=== PATIENT | male | born 1980 | race Caucasian/White ===

== ENCOUNTER 2020-05-10 07:23 | Emergency (ER) | payer BC, SELFPAY ==
--- NOTE | ~2020-05-10 | CT_ITS ---
EXAMINATION: CT abdomen pelvis wo con DATE: 05/10/2020 08:08 INDICATION: Neck pain TECHNIQUE: Computed tomography (CT) of the abdomen and pelvis was performed without intravenous contr ast. The dose-length product was 1622.28 mGy-cm. Automated exposure control and iterative reconstruct ion technique were employed. COMPARISON: None. FINDINGS: Lung bases are unremarkable. Heart size normal. Mildly enlarged portacaval lymph node measu ring 1.9 cm. Additional smaller portacaval lymph nodes are present, likely reactive. Fatty infiltration of the liver. Spleen, pancreas, adrenal glands and left kidney are unremarkable. T here is a 2-3 mm right UVJ stone with mild hydronephrosis and perinephric edema. There are additional nonobstructing right renal stones. Gallbladder is present. Nonobstructive bowel gas pattern. Normal appendix. IMPRESSION: 1. Right UVJ stone measuring 2-3 mm with mild hydronephrosis and perinephric edema. 2: Right nephrolithiasis. 3: Portacaval lymphadenopathy, likely reactive. 4: Hepatic steatosis. Reviewed, dictated and finalized at location A. IMPRESSION: 1. Right UVJ stone measuring 2-3 mm with mild hydronephrosis and perinephric ed baldomero. 2: Right nephrolithiasis. 3: Portacaval lymphadenopathy, likely reactive. 4: Hepatic steatosis.
[2020-05-10 07:26] VITALS: BP 180/101; PULSE 56; RESP 20; TEMP 36.6; O2SAT 99
[2020-05-10 07:39] LABS: Basophils Percent Auto 0.6 % (0.2-1.2); Eosinophils Absolute Auto 0.1 K/mm3 (0-0.3); Eosinophils Percent Auto 1.7 % (0-4.4); Hematocrit 46.2 % (42.0-52.0); Hemoglobin 15.8 g/dL (14.0-18.0); Immature Granulocyte Absolute 0.03 K/mm3 (0.00-0.031); Immature Granulocyte Percent A 0.5 % (0-0.5); Lymphocytes Absolute Auto 2.66 K/mm3 (0.9-3.2); Lymphocytes Percent Auto 42.1 % (18.3-44.2); Mean Corpuscular HGB Conc 34.2 g/dl (32-36); Mean Corpuscular Hemoglobin 29.6 pg (26-34); Mean Corpuscular Volume 86.5 fl (80-100); Monocytes Absolute Auto 0.5 K/mm3 (0.1-0.6); Monocytes Percent Auto 8.5 % (2.6-8.5); Neutrophils Absolute Auto 2.9 K/mm3 (1.3-6.7); Neutrophils Percent Auto 46.6 % (45.5-73.1); Platelet Count Result 240 k/mm3 (150-375); Red Blood Count 5.34 M/mm3 (4.6-6.20); Red Cell Distribution Width 12.4 % (11.5-14.5); White Blood Count 6.3 K/mm3 (4.5-10.0)
--- NOTE | 2020-05-10 07:41 | ED.ABDPAIN ---
HPI - Abdominal Pain General Chief Complaint: Abdominal Pain Stated Complaint: rt flank pain, abd pain Source: patient Mode of arrival: ambulatory Limitations: no limitations History of Present Illness HPI narrative: Patient complaining of right flank pain, 6 out of 10, nonradiating, sharp started this morning. Denies any nausea vomiting diarrhea. Denies any urinary symptoms. Denies any fever or chills. Related Data Home Medications Medication Instructions Recorded Confirmed No Home Medications 05/10/20 05/10/20 Allergies Allergy/AdvReac Type Severity Reaction Status Date / Time No Known Allergies Allergy Unverified 05/10/20 07:27 Review of Systems Review of Systems: All systems reviewed & are unremarkable except as noted in HPI and below Constitutional: Constitutional: Denies body ache(s), Denies chills, Denies excessive sweating, Denies fatigue, Denies fever(s), Denies headache(s), Denies lethargy, Denies malaise, Denies weakness and Denies weight loss Eyes: Eyes: Denies blurry vision, Denies change in vision and Denies loss of vision ENT: Denies dizziness, Denies ear discharge, Denies headache(s), Denies lip swelling, Denies epistaxis, Denies nasal congestion, Denies neck pain, Denies throat swelling and Denies tongue swelling Cardiovascular: Cardiovascular: Denies chest pain, Denies chest pain at rest, Denies chest pain with activity, Denies diaphoresis, Denies rapid heart rate, Denies edema, Denies irregular heart rhythm, Denies lightheadedness, Denies palpitations, Denies dyspnea and Denies dyspnea on exertion Respiratory: Respiratory: Denies chest congestion, Denies cough, Denies hemoptysis, Denies dyspnea and Denies dyspnea on exertion Gastrointestinal: Gastrointestinal: Denies abdominal pain, Denies melena, Denies hematochezia, Denies diarrhea, Denies nausea, Denies vomiting and Denies hematemesis Musculoskeletal: Musculoskeletal: Denies abnormal gait, Denies deformity, Denies joint swelling, Denies limited range of motion, Denies neck pain and Denies numbness Neurologic: Denies Abnormal speech present, Denies abnormal gait, Denies confusion, Denies dizziness, Denies headache(s), Denies focal weakness, Denies loss of vision, Denies numbness, Denies Other visual disturbances, Denies Sensory deficit (Neuro) and Denies weakness Psychiatric: Psychiatric: Denies confusion, Denies depression, Denies auditory hallucinations, Denies homicidal ideation and Denies suicidal ideation Endocrine: Endocrine: Denies cold intolerance, Denies excessive sweating, Denies fatigue, Denies heat intolerance and Denies palpitations Hematologic/Lymphatic: Hematologic/Lymphatic: Denies easy bleeding and Denies easy bruising Allergic/Immunologic: Allergic/Immunologic: Denies lip swelling, Denies throat swelling and Denies tongue swelling [facility] Social History Social History Gender identity (if verbalized by the patient): Male Exam Const: General: cooperative, healthy appearing, comfortable, no acute distress, well developed, alert and awake; No confusion Orientation/consciousness: oriented to person, oriented to place, oriented to time, patient oriented x3 and No confusion Limitations: no limitations HENMT: Head: normal to inspection, normocephalic and atraumatic Ears: hearing grossly normal bilaterally, TM normal on the right and TM normal on the left General nose exam: Normal external nose present, Normal nares present and No nasal discharge present Face and sinus: normal facial exam Mouth: Yes Normal oral and palatal mucosa present, Yes lip normal, Yes tongue normal and Yes oropharynx normal Throat: posterior oropharynx normal, tonsils normal and uvula midline Eyes: General: appearance normal, both eyes and all related structures Pupils: Equal, round and reactive pupils present EOM: EOMs intact bilaterally Neck: Neck: normal visual inspection, full ROM, no lymphadenopathy and no meningeal signs Chest: Chest palpation
--- NOTE | 2020-05-10 07:45 | PC.NURSE ---
Patient refusing straight cath at this time, urinal provided.
[2020-05-10] MEDS: SODIUM CHLORIDE 0.9% IV 1,000 ML 999 ML IV CONT (07:50)
[2020-05-10] MEDS: KETOROLAC 30 MG/ML VIAL (*BKC) IV PUSH (07:50)
[2020-05-10 07:57] LABS: Anion Gap 10 mmol/L (8-16); Blood Urea Nitrogen 21 mg/dL (9-20); Calcium 9.7 mg/dL (8.4-10.2); Carbon Dioxide 26 mmol/L (22-30); Chloride 103 mmol/L (98-107); Estimated CRCL calculation 114 ml/min; Estimated Glomerular Filt Rate > 60; Glucose 138 mg/dL (75-110); Potassium 4.1 mmol/L (3.4-5.0); Sodium 139 mmol/L (137-145)
--- NOTE | 2020-05-10 08:05 | PC.NURSE ---
called lab at 08 to add on Hepatic
[2020-05-10 08:16] LABS: Alanine Aminotransferase 33 U/L (4-50); Albumin Level 4.8 g/dL (3.5-5.1); Alkaline Phosphatase 41 U/L (38-126); Aspartate Amino Transferase 26 U/L (17-59); Bilirubin,Total 0.7 mg/dL (0.2-1.3); Lipase 89 U/L (23-300)
[2020-05-10 08:20] VITALS: TEMP 36.6
[2020-05-10] MEDS: PROMETHAZINE HCL 25 MG/ML AMPUL 12.5 MG IV PUSH (08:20)
[2020-05-10 08:35] VITALS: BP 177/92; PULSE 69; RESP 18; O2SAT 97
[2020-05-10] MEDS: HYDROmorphone HCL INJ (*CRX) 1 MG/ML SYR IV PUSH (08:35)
[2020-05-10 09:05] VITALS: TEMP 36.6
[2020-05-10 09:52] LABS: Add Urine Microscopic? NO; Appearance Urine Clear (Clear); Bilirubin Urine Negative (Negative); Blood Urine Negative (Negative); Color Urine Yellow (Yellow); Glucose Urine UA Negative (Negative); Ketones Urine Negative (Negative); Leukocyte Esterase Ur Negative LEU/UL (Negative); Nitrate Urine Negative (Negative); Protein Urine Negative (Negative); Urobilinogen Urine Negative mg/dL (<2.0)
[2020-05-10] MEDS: HYDROcodone/acetaminophen (*CRX) 5-325 MG TABLET 1 TAB PO (10:43)
[2020-05-10] MEDS: TAMSULOSIN HCL 0.4 MG CAPSULE PO (10:43)
[2020-05-10 11:13] VITALS: TEMP 36.6
[2020-05-10 11:47] VITALS: BP 163/99; PULSE 62; RESP 18; O2SAT 98
== END 2020-05-10 11:49 | disposition home or self-care (01) ==
PROVIDERS: Emergency Provider Emergency Medicine
DX: N13.2 Hydronephrosis with renal and ureteral calculous obstruction (principal); K76.0 Fatty (change of) liver, not elsewhere classified
CPT/HCPCS: 36415; 74176; 80048; 80076; 81003; 83690; 85025; 96361; 96374; 96375; 99284; A9270; J1170; J1885; J2550; J7030

== ENCOUNTER 2020-08-14 13:08 | Emergency (ER) | payer BC, SELFPAY ==
--- NOTE | ~2020-08-14 | XR_ITS ---
EXAMINATION: XR knee RT 3V DATE: 08/14/2020 14:04 INDICATION: Right knee pain and swelling TECHNIQUE: Anteroposterior, oblique and crosstable lateral views of the right knee were obtained COMPARISON: None. FINDINGS: Alignment is normal. No fracture. Joint spaces appear normal on nonweightbearing imaging. Moderate-s ized right knee joint effusion without layering lipohemarthrosis. Soft tissues are otherwise unremark able. IMPRESSION: 1. Moderate-sized right knee joint effusion. No osseous abnormality. Reviewed, dictated and finalized at location A. 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
[2020-08-14 13:27] VITALS: BP 142/90; PULSE 98; RESP 20; TEMP 36.6; O2SAT 99
[2020-08-14] MEDS: KETOROLAC (*BKC) 60 MG/2 ML VIAL IM (13:56)
--- NOTE | 2020-08-14 15:27 | ED.LOWEXIN ---
HPI - Extremity Injury (Lower) General Chief Complaint: Extremity Injury, Lower Stated Complaint: right knee pain Time Seen by Provider: 08/14/20 13:34 History of Present Illness HPI Narrative: Patient is a 40-year-old male who presents to the ER with right knee pain. Worsening over the last 2 weeks. Worsened to the point today where he is using crutches. No known trauma. Reports increased swelling but no redness. Had similar issues with his left knee and had it drained. Is known to have a meniscal tear on the left side but not the right. Has not been taking any anti-inflammatories. Reports he had some bright red blood in the stool earlier so he stopped the NSAIDs. No upset stomach or dark black stools. Reports the amount of blood is scant and within the center of the stool and not feeling the toilet or surrounding it. Related Data Allergies Allergy/AdvReac Type Severity Reaction Status Date / Time No Known Allergies Allergy Verified 08/14/20 13:30 Review of Systems Constitutional: Constitutional: Denies chills, Denies fever(s) and Denies weakness Gastrointestinal: Gastrointestinal: Denies abdominal pain, Denies constipation, Denies nausea and Denies vomiting Musculoskeletal: Musculoskeletal: Reports arthralgias, Reports joint swelling and Denies muscle cramps PMFSH Past Medical History Medical History (Updated 08/14/20 @ 15:36 by Warren Robbins MD) Healthy adult male Surgical History Surgical History (Updated 08/14/20 @ 15:29 by Warren Robbins MD) No history of previous surgery Social History Social History (Updated 08/14/20 @ 15:29 by Warren Robbins MD) Smoking status: Former smoker Gender identity (if verbalized by the patient): Male Exam Narrative: Exam Narrative: GENERAL: Well-appearing, well-nourished, and in no acute distress. HEAD: Normocephalic, atraumatic. EXTREMITIES: Swelling of the right knee with intact range of motion. No redness. Tender palpation over the lateral aspect of the joint line and over the quadriceps musculature just superior lateral to the patella. SKIN: Warm, dry, no rash. NEURO: Alert and oriented x3. PSYCH: Normal mood and affect. Course Course Emergency Course: Pain improving with Toradol. Informed of imaging results. Recommend rice therapy and anti-inflammatories. Will give small dose of [place] as well. Vital Signs Vital signs: Vital Signs Temperature 97.8 F 08/14/20 13:27 Pulse Rate 98 08/14/20 13:27 Respiratory Rate 20 08/14/20 13:27 Blood Pressure 142/90 H 08/14/20 13:27 Pulse Oximetry 99 08/14/20 13:27 Temperature 97.8 F 08/14/20 13:27 Pulse Rate 98 08/14/20 13:27 Respiratory Rate 20 08/14/20 13:27 Blood Pressure 142/90 H 08/14/20 13:27 Pulse Oximetry 99 08/14/20 13:27 MDM - Extremity Injury (Lower) Imaging Data Radiologist's impression: ITS Impressions Knee X-Ray 08/14/20 14:09 IMPRESSION: 1. Moderate-sized right knee joint effusion. No osseous abnormality. Discharge Plan Discharge Clinical Impression: Effusion of knee joint right, Knee pain Patient Disposition: Home, Self-Care Condition: Stable Instructions: Knee Pain (ED), R.I.C.E. Treatment (ED) Additional Instructions: Return the ER if you have chest pain with shortness of breath, you cannot keep down food or water, you lose consciousness, you have additional concerns. Prescriptions: New hydrocodone-acetaminophen 5-325 mg tablet 1 tablet PO Q6H PRN (Reason: pain) Qty: 10 RF: 0 naproxen 500 mg tablet 500 mg PO BID Qty: 20 RF: 0 esomeprazole magnesium [Nexium Packet] [address] for susp in packet 40 mg PO DAILY Qty: 30 RF: 0 No Action hydrocodone-acetaminophen [[place]] 5-325 mg tablet 1 tablet PO Q8H PRN (Reason: pain) Qty: 10 RF: 0 tamsulosin [Flomax] 0.4 mg capsule 0.4 mg PO DAILY Qty: 5 RF: 0 ketorolac 10 mg tablet 10 mg PO Q6H PRN (Reason: pain) 3 Days Qty: 10 RF
== END 2020-08-14 15:55 | disposition home or self-care (01) ==
PROVIDERS: Emergency Provider Emergency Medicine
DX: M25.561 Pain in right knee (principal); M25.461 Effusion, right knee; Z87.891 Personal history of nicotine dependence
CPT/HCPCS: 73562; 96372; 99283; J1885

== ENCOUNTER → 2021-02-21 00:21 | Outpatient (CLI) | payer BC, SELFPAY ==
[2021-02-21 21:20] LABS: SARS-CoV-2 RNA PCR Negative
== END ==
PROVIDERS: PCP Internal Medicine; Visit Provider Internal Medicine Gastroenterology
DX: Z01.812 Encounter for preprocedural laboratory examination (principal); Z20.822 Contact with and (suspected) exposure to COVID-19
CPT/HCPCS: C9803; U0003; U0005

== ENCOUNTER 2021-02-24 02:04 | Day surgery (SDC) | payer BC, SELFPAY ==
[2021-02-19 11:10] VITALS: BMI 43.1
[2021-02-24 08:41] VITALS: BP 144/90; PULSE 80; RESP 18; TEMP 35.7; O2SAT 99; BMI 41.3
--- NOTE | 2021-02-24 08:48 | WPDANESEPPF ---
Anes - Initial Pre Proc Eval Procedure: Operation Date: 02/24/21 10:00 Proposed Procedures p Colonoscopy - Evan Duval MD Date/Time: 02/24/21 08:48 Surgeon: Evan Duval MD Pre Op Diagnosis: Rectal Bleeding Patient Data Age: 41 Gender: M Height: 1.78 m Weight: 130.8 kg Last Vital Signs Temp 35.7 C L 02/24/21 08:41 Pulse 80 02/24/21 08:41 Resp 18 02/24/21 08:41 BP 144/90 H 02/24/21 08:41 Pulse Ox 99 02/24/21 08:41 Allergies Allergy/AdvReac Type Severity Reaction Status Date / Time No Known Allergies Allergy Verified 02/24/21 08:40 Home Medications Medication Instructions Recorded Confirmed Type No Home Medications 01/21/21 02/24/21 History Patient hx anesthesia problems: none Family hx anesthesia problems: none PMFSH Past Medical History Medical History Healthy adult male Ulcer Surgical History Surgical History No history of previous surgery Family History Family History Father Alcoholism Heart disease Social History Social History Years smoked: 7 Smoking status: Current every day smoker Tobacco type: e-cigarettes/vaping Alcohol intake: never Substance use: never Substance use type: does not use Living arrangements: with family 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 Questions were solicited and answers provided to the satisfaction of the patient/family/POA.
[2021-02-24] MEDS: LACTATED RINGERS 1,000 ML 150 ML IV CONT (08:58)
--- NOTE | 2021-02-24 09:23 | P.CONGI_ITS ---
Assessment and Plan Assessment and plan (1) Rectal bleeding: Code(s): K62.5 - Hemorrhage of anus and rectum Status: Acute Assessment and Plan: Rectal bleeding associated with more frequent diarrhea stools. Plan is to assess with colonoscopy. No previous workup has been performed. Further recommendations will be given after endoscopy. (2) Morbid obesity due to excess calories: Code(s): E66.01 - Morbid (severe) obesity due to excess calories Status: Acute Assessment and Plan: Patient is significantly overweight. Diet calorie counting and restriction is encouraged along with increase activity. GI Consult Note Consult date/time: 02/24/21 09:23 HPI: Lei Mayorga is a 41 year old male presents for colonoscopy. sara ent reports over last several months he has had more frequent bowel movements stools occurring up to 6 times a day. He has had bright red blood per rectum sometimes a large amount of blood passes with stools. Patient has rather vague abdominal discomfort. He has not seen a physician on a regular basis. He denies any weight loss. His family history is noncontributory. Review of Systems Review of Systems: All systems reviewed & are unremarkable except as noted in HPI and below PMFSH Past Medical History Medical History Healthy adult male Ulcer Surgical History Surgical History No history of previous surgery Family History Family History Father Alcoholism Heart disease Social History Social History Years smoked: 7 Smoking status: Current every day smoker Tobacco type: e-cigarettes/vaping Alcohol intake: never Substance use: never Substance use type: does not use Living arrangements: with family Additional occupation/education comments: [employer] K[employer] Gender identity (if verbalized by the patient): Male Meds Home Medications and Allergies Home Medications Medication Instructions Recorded Confirmed Type No Home Medications 01/21/21 02/24/21 History Allergies Allergy/AdvReac Type Severity Reaction Status Date / Time No Known Allergies Allergy Verified 02/24/21 08:40 Vital Signs Vital Signs - 24 hr 02/24/21 08:41 Temperature 96.3 F L Pulse Rate 80 Respiratory Rate 18 Blood Pressure 144/90 H Pulse Oximetry 99 Exam Narrative: Exam Narrative: Physical exam reveals patient be alert. Vital signs stable. HEENT exam is unremarkable. Patient is anicteric. Lungs are clear to auscultation and percussion. Heart is without murmur or extra sounds. Abdominal exam bowel sounds are present soft nontender with no hepatosplenomegaly. Digital external rectal exam is normal.
[2021-02-24 10:35] VITALS: BP 111/74; PULSE 71; RESP 20; O2SAT 98
[2021-02-24 10:45] VITALS: BP 110/76; PULSE 63; RESP 17; O2SAT 98
[2021-02-24 10:55] VITALS: BP 123/80; PULSE 61; RESP 19; O2SAT 96
--- NOTE | 2021-02-24 11:22 | SUR.PHASEII ---
I CALLED DR KAMARA'S OFFICE AND SPOKE WITH SUDARSHAN. I SCHEDULED THE NEXT AVAILABLE APPT FOR THE PATIENT. February AT 0845AM. BLOOD DRAWN FROM EXISTING IV PE PROTOCAL. IV DC'D.
[2021-02-24 11:30] LABS: Hematocrit 44.7 % (42.0-52.0); Hemoglobin 14.1 g/dL (14.0-18.0); Mean Corpuscular HGB Conc 31.5 g/dl (32-36); Mean Corpuscular Hemoglobin 27.4 pg (26-34); Mean Corpuscular Volume 86.8 fl (80-100); Platelet Count Result 222 k/mm3 (150-375); Red Blood Count 5.15 M/mm3 (4.6-6.20); White Blood Count 7.2 K/mm3 (4.5-10.0)
[2021-02-24 11:43] LABS: Alanine Aminotransferase 21 U/L (4-50); Albumin Level 4.4 g/dL (3.5-5.1); Alkaline Phosphatase 44 U/L (38-126); Anion Gap 8 mmol/L (8-16); Aspartate Amino Transferase 26 U/L (17-59); Bilirubin,Total 0.4 mg/dL (0.2-1.3); Blood Urea Nitrogen 14 mg/dL (9-20); Calcium 9.7 mg/dL (8.4-10.2); Carbon Dioxide 28 mmol/L (22-30); Chloride 104 mmol/L (98-107); Estimated CRCL calculation 109 ml/min; Estimated Glomerular Filt Rate > 60; Glucose 105 mg/dL (75-110); Potassium 5.4 mmol/L (3.4-5.0); Sodium 140 mmol/L (137-145)
[2021-02-24 12:14] LABS: Carcinoembryonic Antigen 22.7 ng/mL (0.0-3.0)
== END 2021-02-24 11:24 | disposition home or self-care (01) ==
PROVIDERS: PCP Internal Medicine; Visit Provider Internal Medicine Gastroenterology
PROC: 0DJD8ZZ Inspection of Lower Intestinal Tract, Via Natural or Artificial Opening Endoscopic (ICD-10-PCS; CPT 45378; principal; 2021-02-24 10:00)
DX: C19 Malignant neoplasm of rectosigmoid junction (principal); K92.1 Melena; K62.5 Hemorrhage of anus and rectum; F17.290 Nicotine dependence, other tobacco product, uncomplicated; E66.01 Morbid (severe) obesity due to excess calories; Z68.41 Body mass index [BMI] 40.0-44.9, adult
CPT/HCPCS: 45385; 45380; 45381; 36415; 80053; 82378; 85027; 88305; J2704; J7120

== ENCOUNTER 2022-03-01 00:28 | Day surgery (SDC) | payer BC, SELFPAY ==
[2022-02-16 11:54] VITALS: BMI 42.3
[2022-03-01 06:12] VITALS: BP 136/72; PULSE 62; RESP 16; TEMP 36.2; O2SAT 99; BMI 41.0
[2022-03-01] MEDS: LACTATED RINGERS 1,000 ML 150 ML IV CONT (06:59)
--- NOTE | 2022-03-01 07:16 | WPDANESEPPF ---
Anes - Initial Pre Proc Eval Procedure: Operation Date: 03/01/22 07:30 Proposed Procedures p Screening Colonoscopy - Evan Duval MD Date/Time: 03/01/22 07:16 Surgeon: Evan Duval MD Pre Op Diagnosis: hx of colon ca Patient Data Age: 42 Gender: M Height: 1.78 m Weight: 129.7 kg Last Vital Signs Temp 97.2 F L 03/01/22 06:12 Pulse 62 03/01/22 06:12 Resp 16 03/01/22 06:12 BP 136/72 03/01/22 06:12 Pulse Ox 99 03/01/22 06:12 O2 Del Method Room Air 03/01/22 06:12 Allergies Allergy/AdvReac Type Severity Reaction Status Date / Time No Known Allergies Allergy Verified 03/01/22 06:27 Home Medications Medication Instructions Recorded Confirmed Type No Home Medications 01/21/21 03/01/22 History Patient hx anesthesia problems: none Family hx anesthesia problems: none Results Review: All pre-operative results and documents have been reviewed as part of the pre-operative evaluation. [facility] Past Medical History Medical History Healthy adult male Ulcer Surgical History Surgical History No history of previous surgery Family History Family History Father Alcoholism Heart disease Smoker Mother Alcoholism Smoker Grandparent Colon cancer Social History Social History Smoking packs per day: 1 Smoking cigarettes per day: 20.0 Years smoked: 20 Smoking pack-years: 20.00 Smoking status: Former smoker Tobacco type: e-cigarettes/vaping Alcohol intake: never Substance use: never Substance use type: does not use Living arrangements: with family Additional occupation/education comments: [employer] Gender identity (if verbalized by the patient): Male Sexual Orientation (if Verbalized by the Patient): Straight or Heterosexual Spiritual care concerns: No Anes - Eval Final PreProcedure Day of Procedure 03/01/22 07:16 Patient weight: morbidly obese Heart: regular rate and rhythm Lungs: clear to auscultation Airway: Mallampati scale class III Neurological: alert and oriented Last oral intake: >/= 8 hours ASA classification: III Emergent: no Anesthetic plan: proceed Anesthesia type and monitoring: general GIVS and standard monitoring Results Review: All pre-operative results and documents have been reviewed as part of the pre-operative evaluation. Informed Consent: The patient's anesthetic plan and its attendant risks and benefits were discussed with the patient/family/POA. Questions were solicited and answers provided to the satisfaction of the patient/family/POA.
--- NOTE | 2022-03-01 07:28 | PM.IMHP ---
H&P: HPI History of Present Illness Date/Time: 03/01/22 07:28 Chief Complaint: Colon cancer Narrative: this is a 42-year-old white male patient with adenocarcinoma of the colon identified by endoscopy about 1 year ago. He presents today for follow-up examination. He currently has refused radiation therapy. He did receive a short course of chemotherapy. There been some discussions about surgical resection but this is not been accomplished. Currently followed by Dr. Arellano, oncology. Patient presents today for follow-up examination and additional biopsies. He states he did well for most of the year. Although over the recent month follow-up CT scan has shown enlargement of lymph nodes in some increased thickening in the rectal area. Patient presents today for follow-up colonoscopy in additional biopsies. Review of Systems Review of Systems: Review of systems noncontributory. [facility] Past Medical History Medical History Healthy adult male Ulcer Surgical History Surgical History No history of previous surgery Family History Family History Father Alcoholism Heart disease Smoker Mother Alcoholism Smoker Grandparent Colon cancer Social History Social History Smoking packs per day: 1 Smoking cigarettes per day: 20.0 Years smoked: 20 Smoking pack-years: 20.00 Smoking status: Former smoker Tobacco type: e-cigarettes/vaping Alcohol intake: never Substance use: never Substance use type: does not use Living arrangements: with family 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 Gender identity (if verbalized by the patient): Male Sexual Orientation (if Verbalized by the Patient): Straight or Heterosexual Spiritual care concerns: No Meds Home Medications and Allergies Home Medications Medication Instructions Recorded Confirmed Type No Home Medications 01/21/21 03/01/22 History Allergies Allergy/AdvReac Type Severity Reaction Status Date / Time No Known Allergies Allergy Verified 03/01/22 06:27 Vital Signs Vital Signs - 24 hr 03/01/22 06:12 Temperature 97.2 F L Pulse Rate 62 Respiratory Rate 16 Blood Pressure 136/72 Pulse Oximetry 99 Oxygen Delivery Room Air Exam Narrative: Physical exam reveals patient to be alert. Vital signs stable. HEENT exam is unremarkable. Patient is anicteric. Lungs are clear to auscultation and percussion. Heart is without murmur or extra sounds. Abdominal exam bowel sounds are present soft nontender with no organomegaly. Digital external rectal exam is normal. Assessment and Plan Assessment and plan (1) Rectal cancer: Code(s): C20 - Malignant neoplasm of rectum Status: Acute Assessment and Plan: Patient with a history of rectal cancer identified February of 2021 is been 1 year since resection currently felt to have a T3 N1 stage IIIB tumor. Plan is for follow-up colonoscopy at this time to assess his current stage. He has not had resection with no radiation therapy in some chemotherapy. (2) Morbid obesity due to excess calories: Code(s): E66.01 - Morbid (severe) obesity due to excess calories Status: Acute
[2022-03-01 07:51] VITALS: BP 127/69; PULSE 66; RESP 16; O2SAT 99
[2022-03-01 08:01] VITALS: BP 123/73; PULSE 68; RESP 16; O2SAT 97
[2022-03-01 08:11] VITALS: BP 130/83; PULSE 63; RESP 16; O2SAT 97
[2022-03-01] MEDS: HEPARIN SODIUM LOCK FLUSH 500 UNITS/5 ML SYRINGE IV PUSH (08:16)
== END 2022-03-01 08:30 | disposition home or self-care (01) ==
PROVIDERS: Visit Provider Internal Medicine Gastroenterology
PROC: 0DJD8ZZ Inspection of Lower Intestinal Tract, Via Natural or Artificial Opening Endoscopic (ICD-10-PCS; CPT 45378; principal; 2022-03-01 07:30)
DX: Z09 Encounter for follow-up examination after completed treatment for conditions other than malignant neoplasm (principal); D37.4 Neoplasm of uncertain behavior of colon; Z92.21 Personal history of antineoplastic chemotherapy; Z87.891 Personal history of nicotine dependence; Z87.11 Personal history of peptic ulcer disease; E66.01 Morbid (severe) obesity due to excess calories; Z68.41 Body mass index [BMI] 40.0-44.9, adult
CPT/HCPCS: 45380; 88305; J2704; J7120

== ENCOUNTER 2022-03-09 14:31 | Emergency (ER) | payer BC, SELFPAY ==
--- NOTE | ~2022-03-09 | CT_ITS ---
EXAMINATION: CT abdomen pelvis w con DATE: 03/09/2022 16:50 INDICATION: Fever, chills, headache and abdominal pain. Covid positive. History of colon cancer, stat us post chemotherapy. Recent colonoscopy. TECHNIQUE: Computed tomography (CT) of the abdomen and pelvis was performed without intravenous contr ast. Automated exposure control and iterative reconstruction technique were employed. The dose-length product was 1536.86 mGy-cm. COMPARISON: 05/10/2020. FINDINGS: Lower thorax: Incompletely visualized pacer wires. Minimal bibasilar atelectasis/scar Liver: Enlarged fatty infiltrated liver. Biliary/Gallbladder: Gallbladder is normal. No bile duct dilation. Pancreas: No mass or duct dilation. Spleen: Normal. Adrenals:No mass. Bilateral adrenal fat stranding. Kidneys: Nonobstructive right lower pole calculi. No renal mass or hydronephrosis. GI tract: No small or large bowel dilation. Normal appendix. Short segment wall thickening of the dis edmar sigmoid, with surrounding inflammatory change and adjacent lymphadenopathy. Mesentery/Peritoneum: No ascites, mass, or free air. Retroperitoneum: No mass. Pelvis: Pelvic organs are within normal limits. Soft Tissues: Soft tissues and body wall unremarkable. Bones: No acute osseous finding. IMPRESSION: 1. Short segment wall thickening of the distal sigmoid, with surrounding inflammatory change and nikki cent lymphadenopathy consistent with the given history of colon cancer. 2. Bilateral adrenal inflammation, of uncertain etiology. This may reflect some degree of adrenal ins ufficiency, generalized stress reaction, or medication related change. 3. Hepatomegaly and steatosis. Reviewed, dictated and finalized at location [facility]. IMPRESSION: 1. Short segment wall thickening of the distal sigmoid, with surrounding inflam matory change and adjacent lymphadenopathy consistent with the given history of colon cancer. 2. Bilateral adrenal inflammation, of uncertain etiology. This may reflect some degree of adrenal insufficiency, generalized stress reaction, or medication re lated change. 3. Hepatomegaly and steatosis.
[2022-03-09 14:33] VITALS: BP 115/71; PULSE 106; RESP 20; TEMP 36.8; O2SAT 98
--- NOTE | 2022-03-09 15:30 | ED.GENADULT ---
HPI - General Adult General Chief complaint: Upper Respiratory Infection Stated complaint: fever, bodyaches Time Seen by Provider: 03/09/22 14:52 History of Present Illness HPI narrative: 42-year-old male with history of colon cancer presenting to the emergency department for evaluation of not feeling well with subjective fevers and decreased p.o. intake. Patient states that he did have a colonoscopy on Tuesday and that today he woke up not feeling well. Patient states he has not had any worsening nausea or vomiting. Patient states he does have some mild abdominal tenderness. Patient states he does still have soft stool but this was present prior to the colonoscopy as well. Patient denies any cough or shortness of breath. Patient is not vaccinated against COVID. Patient has not yet had COVID Patient is following up with Dr. Arellano for colon cancer. Patient did have 5 rounds of chemotherapy that were completed in June. Related Data Home Medications Medication Instructions Recorded Confirmed No Home Medications 01/21/21 03/01/22 Allergies Allergy/AdvReac Type Severity Reaction Status Date / Time No Known Allergies Allergy Verified 03/01/22 06:27 Review of Systems Review of Systems: CONSTITUTIONAL: Denies fever, chills, or sweats. EYES: Denies visual changes, redness, or discharge. ENT: Denies rhinorrhea, congestion, sore throat, or otalgia. CARDIOVASCULAR: Denies chest pain, palpitations, or edema. RESPIRATORY: Denies cough or dyspnea. GASTROINTESTINAL: See HPI GENITOURINARY: Denies dysuria or hematuria. SKIN: Denies rash or itching. MUSCULOSKELETAL: Denies back pain, joint pain, or myalgia. NEUROLOGIC: Denies headache, numbness, or weakness. 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 HEAD: normocephalic, atraumatic. EYES: PERRLA/EOMI, conjunctivae clear. NOSE: Normal no drainage THROAT: Pharynx clear, no exudate. NECK: Supple. No adenopathy, no masses. RESPIRATORY: Airway patent, respirations nonlabored. Clear to auscultation bilaterally, no rales, rhonchi, wheezing. CARDIOVASCULAR: Regular rate and rhythm without murmurs rubs or gallops. ABDOMINAL: Soft, minimal tenderness to palpation,, nondistended, normal bowel sounds MUSCULOSKELETAL: Moves all extremities. Strength/ROM intact, No edema, No calf tenderness. NEURO: Alert. Cranial nerves II through XII intact. Grossly intact SKIN: Warm, dry. Normal Color Course Course Emergency Course: CT scan showed evidence of adrenal inflammation of uncertain etiology. I updated the primary care physician of this finding. Patient is also COVID-positive. Patient was updated on the results of his CT and on his COVID diagnosis. Patient does have follow-up scheduled with oncology. All question concerns were addressed. Patient was well-appearing at time of discharge. Patient was aware of the adrenal inflammation from prior imaging. Vital Signs
[2022-03-09 15:54] LABS: Basophils Percent Auto 0.2 % (0.2-1.2); Hematocrit 41.3 % (42.0-52.0); Hemoglobin 13.5 g/dL (14.0-18.0); Immature Granulocyte Absolute 0.03 K/mm3 (0.00-0.031); Immature Granulocyte Percent A 0.7 % (0-0.5); Lymphocytes Absolute Auto 0.21 K/mm3 (0.9-3.2); Lymphocytes Percent Auto 4.8 % (18.3-44.2); Mean Corpuscular HGB Conc 32.7 g/dl (32-36); Mean Corpuscular Hemoglobin 28.6 pg (26-34); Mean Corpuscular Volume 87.5 fl (80-100); Mean Platelet Volume 9.1 fl (7.4-10.4); Monocytes Absolute Auto 0.3 K/mm3 (0.1-0.6); Monocytes Percent Auto 6.8 % (2.6-8.5); Neutrophils Absolute Auto 3.8 K/mm3 (1.3-6.7); Neutrophils Percent Auto 87.5 % (45.5-73.1); Platelet Count Result 151 k/mm3 (150-375); Red Blood Count 4.72 M/mm3 (4.6-6.20); Red Cell Distribution Width 12.6 % (11.5-14.5); White Blood Count 4.4 K/mm3 (4.5-10.0)
[2022-03-09] MEDS: SODIUM CHLORIDE 0.9% IV 1,000 ML 999 ML IV CONT (15:54)
[2022-03-09 16:04] LABS: Lactic Acid Reflex 1.1 mmol/L (0.7-2.0)
[2022-03-09 16:05] LABS: Alanine Aminotransferase 23 U/L (6-50); Albumin Level 4.7 g/dL (3.5-5.1); Alkaline Phosphatase 46 U/L (38-126); Anion Gap 11 mmol/L (8-16); Aspartate Amino Transferase 24 U/L (17-59); Bilirubin,Total 0.4 mg/dL (0.2-1.3); Blood Urea Nitrogen 18 mg/dL (9-20); Calcium 8.9 mg/dL (8.4-10.2); Carbon Dioxide 26 mmol/L (22-30); Chloride 101 mmol/L (98-107); Estimated CRCL calculation 131 ml/min; Estimated Glomerular Filt Rate > 60; Glucose 118 mg/dL (65-110); Lipase 31 U/L (23-300); Potassium 3.9 mmol/L (3.4-5.0); Sodium 138 mmol/L (137-145)
[2022-03-09 16:31] LABS: SARS-CoV-2 RNA PCR Positive
== END 2022-03-09 18:32 | disposition home or self-care (01) ==
PROVIDERS: Emergency Provider Emergency Medicine
DX: U07.1 COVID-19 (principal); Z28.310 Unvaccinated for COVID-19; Z85.038 Personal history of other malignant neoplasm of large intestine; Z92.21 Personal history of antineoplastic chemotherapy; Z87.891 Personal history of nicotine dependence; R93.422 Abnormal radiologic findings on diagnostic imaging of left kidney; R93.421 Abnormal radiologic findings on diagnostic imaging of right kidney; K76.0 Fatty (change of) liver, not elsewhere classified; R16.0 Hepatomegaly, not elsewhere classified
CPT/HCPCS: 36415; 74177; 80053; 83605; 83690; 85025; 96361; 96374; 99284; C9803; J0131; J7030; Q9967; U0003; U0005